=== PATIENT | male | born 1965 | race Caucasian/White ===

== ENCOUNTER → 2017-05-04 | Outpatient (CLI) | payer OTHER ==
[~2017-05-04] MED LIST: AMOXICILLIN PO; IBUPROFEN PO; K-DUR20 ME1 PO; KEFLEX250 M1 PO; LISINOPRIL; LOPID600 MG; NO MEDICATIONS; PROAIR HFA8.5 GM INH; TOPROL XL 50 MG50 MG PO; VICODIN 5/500 T1 TAB PO; VICODIN PO
== END | disposition home or self-care (01) ==
LOC: CECH 09:57
DX: I50.9 Heart failure, unspecified (principal); I34.0 Nonrheumatic mitral (valve) insufficiency; I36.1 Nonrheumatic tricuspid (valve) insufficiency
CPT/HCPCS: 93306